=== PATIENT | female | born 1945 | race Caucasian/White ===

== ENCOUNTER → 2017-12-20 09:44 | Outpatient (CLI) | payer OTHER, SELFPAY ==
--- NOTE | 2017-12-20 | DI.MG.S_ITS ---
UNILATERAL LEFT DIGITAL SCREENING MAMMOGRAM 3D/2D WITH CAD: 12/20/2017 CLINICAL: Routine screening. Personal history of breast cancer. Family history of breast cancer. Comparison is made to exams dated: 11/06/2016 mammogram, 10/22/2015 mammogram, and 04/11/2012 mammogram - [facility]. There are scattered fibroglandular elements in left breast. Current study was also evaluated with a Computer Aided Detection (CAD) system. There is an asymmetry in the left breast middle depth superior region seen on the mediolateral oblique view only. There is architectural distortion associated with the asymmetry. No other significant masses or calcifications are seen in the breast. IMPRESSION: INCOMPLETE: NEEDS ADDITIONAL IMAGING EVALUATION The asymmetry in the left breast is indeterminate. Additional views with possible ultrasound are recommended. This exam was interpreted at Station ID: [id number]. NOTE: For mammograms, a report in lay terms will be sent to the patient. Approximately 15% of breast malignancies will not be visualized mammographically. In the management of a palpable breast mass, a negative mammogram must not discourage biopsy of a clinically suspicious lesion. Electronically Signed By: Patricia olivo/clive:12/21/2017 12:16:16 Entry: angie - 12/21/2017 12:16:16 letter sent: Additional Imaging Needed ACR BI-RADS Category 0: Incomplete 3340F
== END ==
PROVIDERS: Family Provider Family Medicine; PCP Family Medicine; Visit Provider Family Medicine
DX: Z12.31 Encounter for screening mammogram for malignant neoplasm of breast (principal); Z85.3 Personal history of malignant neoplasm of breast; Z80.3 Family history of malignant neoplasm of breast
CPT/HCPCS: 77063; 77065

== ENCOUNTER → 2018-01-11 09:18 | Outpatient (CLI) | payer OTHER, SELFPAY ==
--- NOTE | 2018-01-11 | DI.US.S_ITS ---
ULTRASOUND OF LEFT BREAST: 01/11/2018 CLINICAL: Patient returns today to evaluate a density in the left breast. Comparison is made to exams dated: 01/11/2018 mammogram, 12/20/2017 mammogram, 11/06/2016 mammogram, and 10/22/2015 mammogram - [facility]. Real-time ultrasound of the left breast was performed on the areas of interest. Norwood scale images of the real-time examination were reviewed. IMPRESSION: SUSPICIOUS OF MALIGNANCY There is no sonographic abnormality seen in the left breast to correspond with the mammography finding. Stereotactic biopsy of the focal asymmetry in the left breast at 1 o'clock is recommended. These findings and recommendations were discussed with the patient by Dr. Baker at the time of the study. Additionally, the fact that the lesion may not be as conspicuous under stereotactic guidance was discussed. If the lesion cannot be seen under stereotactic visualization, MRI or 6 month follow up may be recommended. This exam was interpreted at Station ID: [id number]. Electronically Signed By: Patricia olivo/:01/11/2018 14:00:13 letter sent: Biopsy Required Ultrasound BI-RADS: 4a Suspicious abnormality - low suspicion for malignancy
--- NOTE | 2018-01-11 | DI.MG.S_ITS ---
UNILATERAL LEFT DIGITAL DIAGNOSTIC MAMMOGRAM 3D/2D WITH ADDITIONAL VIEWS: 01/11/2018 CLINICAL: Additional evaluation requested from prior study. Comparison is made to exams dated: 12/20/2017 mammogram, 11/06/2016 mammogram, and 10/22/2015 mammogram - [facility]. There are scattered fibroglandular elements in left breast. There is a focal asymmetry in the left breast at 1 o'clock middle depth. This is seen in additional views. There is architectural distortion associated with the focal asymmetry. No other significant masses or calcifications are seen in the breast. IMPRESSION: INCOMPLETE: NEEDS ADDITIONAL IMAGING EVALUATION The focal asymmetry in the left breast is indeterminate. A targeted ultrasound of the left breast is recommended and will be performed immediately following this exam. This exam was interpreted at Station ID: [id number]. NOTE: For mammograms, a report in lay terms will be sent to the patient. Approximately 15% of breast malignancies will not be visualized mammographically. In the management of a palpable breast mass, a negative mammogram must not discourage biopsy of a clinically suspicious lesion. Electronically Signed By: Patricia olivo/:01/11/2018 09:39:42 letter sent: Additional Imaging Needed ACR BI-RADS Category 0: Incomplete 3340F
== END ==
PROVIDERS: PCP Family Medicine; Visit Provider Family Medicine
DX: R92.8 Other abnormal and inconclusive findings on diagnostic imaging of breast (principal); N64.89 Other specified disorders of breast
CPT/HCPCS: 76642; 77065; G0279

== ENCOUNTER 2018-04-25 10:11 | Emergency (ER) | payer OTHER, SELFPAY ==
[2018-04-25 10:18] VITALS: BP 154/89; PULSE 103; RESP 20; TEMP 36.6; O2SAT 95
--- NOTE | 2018-04-25 10:32 | ED.EXTPRO ---
HPI - Extremity Problem General Chief complaint: Extremity Problem,Nontraumatic Stated complaint: PT STUMBLED AND FELL Time Seen by Provider: 04/25/18 10:18 Source: patient Mode of arrival: ambulatory Limitations: no limitations History of Present Illness HPI Narrative: Patient is a 72 year old female presents with ground level fall. She was walking a ramp to the hospital pharmacy she fell forward landing on her right knee. The sawyer cork slabs saw her fall helped her up and walked her to the emergency department for further evaluation. She has chronic ongoing back pain with sciatica. She says that pain actually is not any worse. She says due to the static pain she has not been walking a lot however today she walked twice as far as she normally does. She walked from [facility] to the pharmacy to get her prescription she thinks that may be why she fell. She has some right leg pain but is been ongoing since November. She is is able to weight bear. She has no knee pain or hip pain. She denies any dizziness lightheadedness shortness of breath. She is a diabetic her blood sugars have been slightly out Related Data Home Medications Medication Instructions Recorded Confirmed MULTIVITAMIN (Multivitamin 1 cap PO EVERY DAY #0 04/06/10 11/13/17 -) cetirizine 10 mg PO #0 01/26/12 11/13/17 lisinopril 5 mg PO QDAY #0 01/26/12 11/13/17 pravastatin [Pravachol] 20 mg PO HS #0 01/26/12 11/13/17 atorvastatin [Lipitor] 10 mg PO HS #0 11/07/16 11/13/17 glimepiride [Amaryl] 4 mg PO BID #0 11/07/16 11/13/17 hydrocodone-acetaminophen [[place]] 1 tab PO Q4HP PRN #0 11/07/16 11/13/17 trospium 60 mg PO QDAY #0 11/07/16 11/13/17 gabapentin 600 mg tablet 1,200 mg PO TID #0 tab 11/13/17 11/13/17 insulin glargine (U-100) 100 20 unit SUBCUT QDAY #0 ml 11/13/17 11/13/17 unit/mL (3 mL) subcutaneous pen meloxicam 7.5 mg tablet 7.5 mg PO #0 tab 11/13/17 11/13/17 omeprazole 20 mg capsule,delayed 20 mg PO QDAY PRN #0 11/13/17 11/13/17 release sertraline 25 mg tablet 25 mg PO DAILY 11/13/17 Previous Rx's Medication Instructions Recorded melatonin 3 mg PO HS #30 tab 05/14/17 Allergies Allergy/AdvReac Type Severity Reaction Status Date / Time triamcinolone [TRIAMCINOLONE] Allergy Intermediate URINARY Unverified 05/16/17 12:11 RETENTION Review of Systems Review of Systems ROS Unobtainable: All systems reviewed & are unremarkable except as noted in HPI and below Constitutional Denies chills, Denies fever(s), Denies lethargy and Denies weakness Eyes Denies change in vision, Denies eye discharge, Denies irritation and Denies loss of vision Cardiovascular Denies chest pain, Denies irregular heart rhythm, Denies lightheadedness, Denies palpitations, Denies dyspnea, Denies dyspnea on exertion and Denies orthopnea Respiratory Denies cough, Denies dyspnea, Denies dyspnea on exertion and Denies wheezing Gastrointestinal Gastrointestinal: Denies abdominal pain, Denies change in bowel habits, Denies diarrhea, Denies nausea and Denies vomiting Genitourinary Denies hematuria, Denies flank pain, Denies urinary incontinence and Denies urinary urgency Musculoskeletal Reports as per HPI Integumentary/Breasts Denies pruritus, Denies erythema, Denies rash and Denies wounds Neurologic Denies loss of vision and Denies weakness Endocrine Denies palpitations Allergic/Immunologic Denies wheezing [facility] Medical History Diabetes (Acute) Social History lives independently: Yes housing: apartment Social History lives independently: Yes housing: apartment Exam Initial Vital Signs Initial Vital Signs: Vital Signs Temperature 97.8 F 04/25/18 10:18 Pulse Rate 103 H 04/25/18 10:18 Respiratory Rate 20 04/25/18 10:18 Blood Pressure 154/89 H 04/25/18 10:18 Pulse Oximetry 95 04/25/18 10:18 GENERAL: Well-appearing, well-nourished and in no acute distress. HEENT: Head atraumatic,EOMI, pupils reactive, face symmetric, moist mucous membranes CARDIOVASCULAR: Regular rate and rhythm without murmurs, rubs or gallops. RESPIRATORY: Breath sounds equal bilaterally, no wheezes rales or rhonchi. ABDOMEN: Soft, nontender. Normoactive bowel sounds all 4 quadrants. No guarding or rebound. EXTREMITIES: Normal range of motion, no clubbing or edema. Neurovascularly intact. Right lower extremity able flex and extend the knee completely. No hip pain distal pedal pulse intact. Moving leg quite easily BACK: Lumbar tenderness, which she says is stable no sign of trauma no contusion no abrasion Pelvis is stable no tenderness in his NEUROLOGICAL: Alert and oriented x4.Normal gait and speech. Cranial nerves II through XII grossly intact. SKIN: Warm, dry, no laceration, no petechiae, no rashes or lesions. Course Vital Signs - 8 hr 04/25/18 10:18 Temperature 97.8 F Pulse Rate 103 H Respiratory Rate 20 Blood Pressure 154/89 H Pulse Oximetry 95 MDM - Extremity (Nontraumatic) Lab Data Point of Care Testing Glucose POC 212 MDM Narrative Medical decision making narrative: At this time patient is chronic ongoing pain. She walked more today than she normally did. His sound as though she was tripped and fell outside of the hospital. She has no other complaints she is ambulatory afterwards. At this time no indication for any imaging she may need an outpatient MRI if her back pain continues to worsen. She fell forwards not backwards, worsening pain today. Discharge Plan Departure Patient Disposition: Home Clinical Impression: Contusion of knee, right Qualifiers: Encounter type: initial encounter Qualified Code(s): S80.01XA - Contusion of right knee, initial encounter Discharge Date/Time: 04/25/18 10:49 Interventions: ED Discharge Assessment Last Done: 04/25/18 10:48 Instructions: Managing Chronic Low Back Pain, How to Prevent Falls Activity Restrictions/Additional Instructions: *You have been diagnosed with rate knee pain, acute on chronic back pain *What to do: May need MRI as outpatient. At this time no need for imaging *Continue to take medications as directed *Follow up with your primary care provider in 2-3 days *Return to ER if you should have increasing weak or any new, worsening or concerning symptoms Prescriptions: No Action sertraline 25 mg tablet 25 mg PO DAILY RF: 0 MULTIVITAMIN (Multivitamin -) 1 cap PO EVERY DAY Qty: 0 RF: 0 pravastatin [Pravachol] 20 MG tablet 20 mg PO HS Qty: 0 RF: 0 cetirizine 10 MG tablet 10 mg PO Qty: 0 RF: 0 lisinopril 5 MG tablet 5 mg PO QDAY Qty: 0 RF: 0 trospium 60 MG capsule,extended release 24hr 60 mg PO QDAY Qty: 0 RF: 0 glimepiride [Amaryl] 4 MG tablet 4 mg PO BID Qty: 0 RF: 0 atorvastatin [Lipitor] 10 MG tablet 10 mg PO HS Qty: 0 RF: 0 hydrocodone-acetaminophen [[place]] 5 MG/325 MG tablet 1 tab PO Q4HP PRNQty: 0 RF: 0 melatonin 3 MG tablet 3 mg PO HS Qty: 30 RF: 2 gabapentin [Neurontin] 600 mg tablet 1,200 mg PO TID Qty: 0 RF: 0 insulin glargine [Lantus Solostar U-100 Insulin] 100 unit/mL (3 mL) insulin pen 20 unit SUBCUT QDAY Qty: 0 RF: 0 meloxicam [Mobic] 7.5 mg tablet 7.5 mg PO Qty: 0 RF: 0 omeprazole 20 mg capsule,delayed release(DR/EC) 20 mg PO QDAY PRN (Reason: reflux) Qty: 0 RF: 0 Referrals: Kamran Barr MD [Primary Care Provider] -
--- NOTE | 2018-04-25 10:42 | ED_ITS ---
HPI - Extremity Problem General Chief complaint: Extremity Problem,Nontraumatic Stated complaint: PT STUMBLED AND FELL Time Seen by Provider: 04/25/18 10:18 Source: patient Mode of arrival: ambulatory Limitations: no limitations History of Present Illness HPI Narrative: Patient is a 72 year old female presents with ground level fall. She was walking a ramp to the hospital pharmacy she fell forward landing on her right knee. The lactation coordinator saw her fall helped her up and walked her to the emergency department for further evaluation. She has chronic ongoing back pain with sciatica. She says that pain actually is not any worse. She says due to the static pain she has not been walking a lot however today she walked twice as far as she normally does. She walked from [facility] to the pharmacy to get her prescription she thinks that may be why she fell. She has some right leg pain but is been ongoing since November. She is is able to weight bear. She has no knee pain or hip pain. She denies any dizziness lightheadedness shortness of breath. She is a diabetic her blood sugars have been slightly out Related Data Home Medications Medication Instructions Recorded Confirmed MULTIVITAMIN (Multivitamin 1 cap PO EVERY DAY #0 04/06/10 11/13/17 -) cetirizine 10 mg PO #0 01/26/12 11/13/17 lisinopril 5 mg PO QDAY #0 01/26/12 11/13/17 pravastatin [Pravachol] 20 mg PO HS #0 01/26/12 11/13/17 atorvastatin [Lipitor] 10 mg PO HS #0 11/07/16 11/13/17 glimepiride [Amaryl] 4 mg PO BID #0 11/07/16 11/13/17 hydrocodone-acetaminophen [[place]] 1 tab PO Q4HP PRN #0 11/07/16 11/13/17 trospium 60 mg PO QDAY #0 11/07/16 11/13/17 gabapentin 600 mg tablet 1,200 mg PO TID #0 tab 11/13/17 11/13/17 insulin glargine (U-100) 100 20 unit SUBCUT QDAY #0 ml 11/13/17 11/13/17 unit/mL (3 mL) subcutaneous pen meloxicam 7.5 mg tablet 7.5 mg PO #0 tab 11/13/17 11/13/17 omeprazole 20 mg capsule,delayed 20 mg PO QDAY PRN #0 11/13/17 11/13/17 release sertraline 25 mg tablet 25 mg PO DAILY 11/13/17 Previous Rx's Medication Instructions Recorded melatonin 3 mg PO HS #30 tab 05/14/17 Allergies Allergy/AdvReac Type Severity Reaction Status Date / Time triamcinolone [TRIAMCINOLONE] Allergy Intermediate URINARY Unverified 05/16/17 12:11 RETENTION Review of Systems Review of Systems ROS Unobtainable: All systems reviewed & are unremarkable except as noted in HPI and below Constitutional Denies chills, Denies fever(s), Denies lethargy and Denies weakness Eyes Denies change in vision, Denies eye discharge, Denies irritation and Denies loss of vision Cardiovascular Denies chest pain, Denies irregular heart rhythm, Denies lightheadedness, Denies palpitations, Denies dyspnea, Denies dyspnea on exertion and Denies orthopnea Respiratory Denies cough, Denies dyspnea, Denies dyspnea on exertion and Denies wheezing Gastrointestinal Gastrointestinal: Denies abdominal pain, Denies change in bowel habits, Denies diarrhea, Denies nausea and Denies vomiting Genitourinary Denies hematuria, Denies flank pain, Denies urinary incontinence and Denies urinary urgency Musculoskeletal Reports as per HPI Integumentary/Breasts Denies pruritus, Denies erythema, Denies rash and Denies wounds Neurologic Denies loss of vision and Denies weakness Endocrine Denies palpitations Allergic/Immunologic Denies wheezing [facility] Medical History Diabetes (Acute) Social History lives independently: Yes housing: apartment Social History lives independently: Yes housing: apartment Exam Initial Vital Signs Initial Vital Signs: Vital Signs Temperature 97.8 F 04/25/18 10:18 Pulse Rate 103 H 04/25/18 10:18 Respiratory Rate 20 04/25/18 10:18 Blood Pressure 154/89 H 04/25/18 10:18 Pulse Oximetry 95 04/25/18 10:18 GENERAL: Well-appearing, well-nourished and in no acute distress. HEENT: Head atraumatic,EOMI, pupils reactive, face symmetric, moist mucous membranes CARDIOVASCULAR: Regular rate and rhythm without murmurs, rubs or gallops. RESPIRATORY: Breath sounds equal bilaterally, no wheezes rales or rhonchi. ABDOMEN: Soft, nontender. Normoactive bowel sounds all 4 quadrants. No guarding or rebound. EXTREMITIES: Normal range of motion, no clubbing or edema. Neurovascularly intact. Right lower extremity able flex and extend the knee completely. No hip pain distal pedal pulse intact. Moving leg quite easily BACK: Lumbar tenderness, which she says is stable no sign of trauma no contusion no abrasion Pelvis is stable no tenderness in his NEUROLOGICAL: Alert and oriented x4.Normal gait and speech. Cranial nerves II through XII grossly intact. SKIN: Warm, dry, no laceration, no petechiae, no rashes or lesions. Course Vital Signs - 8 hr 04/25/18 10:18 Temperature 97.8 F Pulse Rate 103 H Respiratory Rate 20 Blood Pressure 154/89 H Pulse Oximetry 95 MDM - Extremity (Nontraumatic) Lab Data Point of Care Testing Glucose POC 212 MDM Narrative Medical decision making narrative: At this time patient is chronic ongoing pain. She walked more today than she normally did. His sound as though she was trip ped and fell outside of the hospital. She has no other complaints she is ambulatory afterwards. At this time no indication for any imaging she may need an outpatient MRI if her back pain continues to worsen. She fell forwards not backwards, worsening pain today. Discharge Plan Departure Patient Disposition: Home Clinical Impression: Contusion of knee, right Qualifiers: Encounter type: initial encounter Qualified Code(s): S80.01XA - Contusion of right knee, initial encounter Discharge Date/Time: 04/25/18 10:49 Interventions: ED Discharge Assessment Last Done: 04/25/18 10:48 Instructions: Managing Chronic Low Back Pain, How to Prevent Falls Activity Restrictions/Additional Instructions: *You have been diagnosed with rate knee pain, acute on chronic back pain *What to do: May need MRI as outpatient. At this time no need for imaging *Continue to take medications as directed *Follow up with your primary care provider in 2-3 days *Return to ER if you should have increasing weak or any new, worsening or concerning symptoms Prescriptions: No Action sertraline 25 mg tablet 25 mg PO DAILY RF: 0 MULTIVITAMIN (Multivitamin -) 1 cap PO EVERY DAY Qty: 0 RF: 0 pravastatin [Pravachol] 20 MG tablet 20 mg PO HS Qty: 0 RF: 0 cetirizine 10 MG tablet 10 mg PO Qty: 0 RF: 0 lisinopril 5 MG tablet 5 mg PO QDAY Qty: 0 RF: 0 trospium 60 MG capsule,extended release 24hr 60 mg PO QDAY Qty: 0 RF: 0 glimepiride [Amaryl] 4 MG tablet 4 mg PO BID Qty: 0 RF: 0 atorvastatin [Lipitor] 10 MG tablet 10 mg PO HS Qty: 0 RF: 0 hydrocodone-acetaminophen [[place]] 5 MG/325 MG tablet 1 tab PO Q4HP PRNQty: 0 RF: 0 melatonin 3 MG tablet 3 mg PO HS Qty: 30 RF: 2 gabapentin [Neurontin] 600 mg tablet 1,200 mg PO TID Qty: 0 RF: 0 insulin glargine [Lantus Solostar U-100 Insulin] 100 unit/mL (3 mL) insulin pen 20 unit SUBCUT QDAY Qty: 0 RF: 0 meloxicam [Mobic] 7.5 mg tablet 7.5 mg PO Qty: 0 RF: 0 omeprazole 20 mg capsule,delayed release(DR/EC) 20 mg PO QDAY PRN (Reason: reflux) Qty: 0 RF: 0 Referrals: Kamran Barr MD [Primary Care Provider] -
== END 2018-04-25 10:49 | disposition home or self-care (01) ==
LOC: ED 10:49
PROVIDERS: Emergency Provider Emergency Medicine; PCP Family Medicine
DX: S80.01XA Contusion of right knee, initial encounter (principal); W18.30XA Fall on same level, unspecified, initial encounter
CPT/HCPCS: 82962; 99282

== ENCOUNTER → 2018-05-10 11:46 | Outpatient (CLI) | payer OTHER, SELFPAY ==
--- NOTE | 2018-05-10 | DI.MRI.S_ITS ---
PROCEDURE: MR LUMBAR SPINE WO CON INDICATIONS: LOW BACK PAIN TECHNIQUE: Noncontrast sagittal T1 spin echo and T2 fast echo, sagittal STIR, axial T1 and T2 fast spin echo through the lumbar spine. In cases with scoliosis, additional coronal T2 fast spin echo may be performed. COMPARISON: [facility], MR, L-SPINE WITHOUT CONTRAST, 02/25/2015, 18:12. FINDINGS: Image quality: Excellent. Alignment and Curvature: There is grade 1 anterolisthesis of L4 on L5, unchanged from prior study. Bone Marrow: Marrow is of normal overall signal. No acute vertebral body compression fractures. Spinal Cord: Conus medullaris terminates at the L1 level. Visualized cord demonstrates normal signal and size. Paraspinous Soft Tissues: No paravertebral masses. L1-L2: Normal appearance. L2-L3: There is interval further decrease of intervertebral disc space. Degenerative endplate changes, broad-based disc bulge and bilateral facet arthrosis is seen causing mild to moderate central canal stenosis and mild bilateral neuroforaminal narrowing slightly worse on the left side. This has slightly progressed since previous study. L3-L4: Broad-based disc bulge and bilateral facet arthrosis is seen with mild central canal stenosis, no significant neural foraminal narrowing. L4-L5: Diffuse disc bulge and superimposed right lateral disc herniation is seen, worsened since previous study. Bilateral facet arthrosis is also seen. There is moderate central canal stenosis and right worse than left bilateral neuroforaminal narrowing also worsened since previous study. L5-S1: Mild diffuse disc bulge and bilateral facet arthrosis is seen with no significant canal stenosis or neuroforaminal narrowing. IMPRESSION: 1. Interval worsening of diffuse disc bulge and right lateral disc herniation at L4-5 level causing moderate central canal stenosis and right worse than left bilateral neuroforaminal narrowing. 2. Degenerative disc bulge and bilateral facet arthrosis at L2-3 level with mild to moderate central canal stenosis and mild bilateral neuroforaminal narrowing also slightly worsened since 2016 study. 3. No acute compression fracture. Grade 1 anterolisthesis of L4 on L5, unchanged from prior study. Dictated by: Fabio Mathis M.D. on 05/10/2018 at 13:36 Approved by: Fabio Mathis M.D. on 05/10/2018 at 13:52
== END ==
PROVIDERS: PCP Family Medicine; Visit Provider Family Medicine
DX: M51.26 Other intervertebral disc displacement, lumbar region (principal); M51.27 Other intervertebral disc displacement, lumbosacral region; M51.36 Other intervertebral disc degeneration, lumbar region; M47.816 Spondylosis without myelopathy or radiculopathy, lumbar region; M48.061 Spinal stenosis, lumbar region without neurogenic claudication; M43.10 Spondylolisthesis, site unspecified
CPT/HCPCS: 72148

== ENCOUNTER → 2018-09-18 12:37 | Outpatient (CLI) | payer OTHER, SELFPAY ==
--- NOTE | 2018-09-18 | DI.US.S_ITS ---
ULTRASOUND OF LEFT BREAST: 09/18/2018 CLINICAL: 6 month follow-up of left breast focal asymmetry noted at the 1:00 axis, middle depth that had no sonographic correlate and finding could not be visualized for attempted stereotactic biopsy. Patient returns for follow up and focal left breast pain in similar area that is noted to be more posterior to location of focal asymmetry. Comparison is made to exams dated: 09/18/2018 mammogram - [facility], 01/17/2018 stereotactic biopsy - [facility], 01/11/2018 ultrasound, 01/11/2018 mammogram, 12/20/2017 mammogram, and 10/22/2015 mammogram - [facility]. Color flow and real-time ultrasound of the left breast were performed. [place]wood scale images of the real-time examination were reviewed. There are benign normal lymph nodes left breast in the upper outer quadrant that correlate with palpable abnormalities and reported pain. No other abnormalties are identified in the left breast. IMPRESSION: PROBABLY BENIGN There are two adjacent normal lymph nodes identified which correlate with palpable are of pain in the upper outer left breast. Recommend clinical follow up for persistent symptoms. There is no abnormality seen in the left breast to correspond with the mammography finding (focal asymmetry) at 1 o'clock in the upper outer quadrant, middle depth which is probably benign given its stability. A follow-up left mammogram and an ultrasound in 6 months is recommended to demonstrate stability. This exam was interpreted at Station ID: [id number]. Electronically Signed By: Oliver gupta/:09/18/2018 16:32:29 letter sent: Followup Recommended Ultrasound BI-RADS: 3 Probably benign
--- NOTE | 2018-09-18 | DI.MG.S_ITS ---
UNILATERAL LEFT DIGITAL DIAGNOSTIC MAMMOGRAM 3D/2D: 09/18/2018 CLINICAL: Patient returns for a 6 month follow up of the left breast. Comparison is made to exams dated: 01/11/2018 mammogram, 12/20/2017 mammogram, and 11/06/2016 mammogram - [facility]. There are scattered fibroglandular elements in left breast. There is a focal asymmetry in the left breast at 1 o'clock anterior depth. This is persistent but appears less prominent than recent evaluation. No other significant masses or calcifications are seen in the breast. IMPRESSION: INCOMPLETE: NEEDS ADDITIONAL IMAGING EVALUATION The focal asymmetry in the left breast is indeterminate. An ultrasound is recommended. There is no abnormality seen in the left breast to correspond with the pain indicated by a square marker in the upper outer quadrant which appears to be more posterior to focal asymmetry that is being followed by imaging today. However, an ultrasound is recommended for further evaluation and is scheduled to immediately follow this study. This exam was interpreted at Station ID: [id number]. NOTE: For mammograms, a report in lay terms will be sent to the patient. Approximately 15% of breast malignancies will not be visualized mammographically. In the management of a palpable breast mass, a negative mammogram must not discourage biopsy of a clinically suspicious lesion. Electronically Signed By: Oliver Oviedo M.D. aty/:09/18/2018 13:32:17 ACR BI-RADS Category 0: Incomplete [id number]
== END ==
PROVIDERS: Visit Provider Student in an Organized Health Care Education/Training Program
DX: R92.8 Other abnormal and inconclusive findings on diagnostic imaging of breast (principal); N64.89 Other specified disorders of breast
CPT/HCPCS: 76642; 77065; G0279

== ENCOUNTER → 2019-04-29 13:11 | Outpatient (CLI) | payer MEDICARE, SELFPAY ==
--- NOTE | 2019-04-29 | DI.US.S_ITS ---
LIMITED ULTRASOUND OF LEFT BREAST AND AXILLA: 04/29/2019 CLINICAL: 6 month follow-up of nodes. Comparison is made to exams dated: 04/29/2019 mammogram, 09/18/2018 ultrasound, 09/18/2018 mammogram - [facility], 01/17/2018 stereotactic biopsy - [facility], and 01/11/2018 ultrasound - [facility]. Real-time ultrasound of the left breast upper outer quadrant and axilla regions was performed on the areas of interest. No discrete cystic or solid mass lesion identified in the area of mammographic finding. IMPRESSION: PROBABLY BENIGN There is no sonographic evidence of malignancy. There is no abnormality seen in the left breast to correspond with the mammography finding in the upper outer quadrant. A follow-up mammogram in 6 months is recommended to demonstrate 2 year stability. This exam was interpreted at Station ID: [id number]. Electronically Signed By: New Mann M.D. ddp/:05/01/2019 12:14:59 letter sent: Followup Recommended Ultrasound BI-RADS: 3 Probably benign
--- NOTE | 2019-04-29 | DI.MG.S_ITS ---
UNILATERAL LEFT DIGITAL DIAGNOSTIC MAMMOGRAM 3D/2D SHORT-TERM FOLLOW-UP POST MASTECTOMY: 04/29/2019 CLINICAL: Patient returns for a 6 month follow up of the left breast. Comparison is made to exams dated: 09/18/2018 mammogram, 01/11/2018 mammogram, and 12/20/2017 mammogram - [facility]. There are scattered fibroglandular elements in left breast. There is an irregular equal density focal asymmetry with an indistinct margin in the left breast at 1 o'clock anterior depth. This is not significantly changed. No other significant masses or calcifications are seen in the breast. IMPRESSION: INCOMPLETE: NEEDS ADDITIONAL IMAGING EVALUATION The irregular equal density focal asymmetry in the left breast is indeterminate. An ultrasound is recommended. This exam was interpreted at Station ID: [id number]. NOTE: For mammograms, a report in lay terms will be sent to the patient. Approximately 15% of breast malignancies will not be visualized mammographically. In the management of a palpable breast mass, a negative mammogram must not discourage biopsy of a clinically suspicious lesion. Electronically Signed By: New avendaño/clive:04/29/2019 14:34:53 ACR BI-RADS Category 0: Incomplete 3340F
== END ==
PROVIDERS: Referring Provider Student in an Organized Health Care Education/Training Program; Visit Provider Student in an Organized Health Care Education/Training Program
DX: R92.8 Other abnormal and inconclusive findings on diagnostic imaging of breast (principal); N64.4 Mastodynia; N64.89 Other specified disorders of breast
CPT/HCPCS: 76642; 77065; G0279

== ENCOUNTER → 2019-11-04 12:20 | Outpatient (CLI) | payer MEDICARE, SELFPAY ==
--- NOTE | 2019-11-04 | DI.MG.S_ITS ---
UNILATERAL LEFT DIGITAL DIAGNOSTIC MAMMOGRAM 3D/2D: 11/04/2019 CLINICAL: Short follow up. Comparison is made to exams dated: 04/29/2019 mammogram, 09/18/2018 mammogram, 01/11/2018 mammogram, 04/29/2019 ultrasound, 09/18/2018 ultrasound, and 01/11/[address] ultrasound - [facility]. There are scattered fibroglandular elements in left breast. There is a benign focal asymmetry in the left breast at 1 o'clock anterior depth. This is less prominent and was not seen on the prior ultrasound. This focal asymmetry has been decreasing in prominence over multiple prior exams dating back to 12/20/2017, and is considered benign. No other significant masses or calcifications are seen in the breast. IMPRESSION: BENIGN There is no mammographic evidence of malignancy. A 1 year screening mammogram is recommended. This exam was interpreted at Station ID: [id number]. NOTE: For mammograms, a report in lay terms will be sent to the patient. Approximately 15% of breast malignancies will not be visualized mammographically. In the management of a palpable breast mass, a negative mammogram must not discourage biopsy of a clinically suspicious lesion. Electronically Signed By: Derek magana/clive:11/04/2019 13:23:02 letter sent: Normal Exam ACR BI-RADS Category 2: Benign Finding(s) 3342F
== END ==
PROVIDERS: PCP Student in an Organized Health Care Education/Training Program; Referring Provider Student in an Organized Health Care Education/Training Program; Visit Provider Student in an Organized Health Care Education/Training Program
DX: R92.8 Other abnormal and inconclusive findings on diagnostic imaging of breast (principal)
CPT/HCPCS: 77065; G0279

== ENCOUNTER → 2020-04-15 11:15 | Outpatient (CLI) | payer MEDICARE, SELFPAY ==
--- NOTE | 2020-04-15 | DI.RAD.S_ITS ---
PROCEDURE: XR KNEE RT 3V INDICATIONS: Right Knee Pain TECHNIQUE: 3 views of the knee were acquired. COMPARISON: None. FINDINGS: Bones: No acute fractures or dislocations. No suspicious bony lesions. Mild tricompartmental degenerative changes of the right knee. Tricompartmental osteophyte formation. Small enthesophyte at the insertion site of the distal quadriceps tendon. Soft tissues: No joint effusion. No suspicious soft tissue calcifications. IMPRESSION: Right knee without acute fracture or dislocation. Tricompartmental osteoarthrosis. Dictated by: Oliver Oviedo M.D. on 04/15/2020 at 14:21 Approved by: Oliver Oviedo M.D. on 04/15/2020 at 14:25
== END ==
PROVIDERS: PCP Student in an Organized Health Care Education/Training Program; Referring Provider Student in an Organized Health Care Education/Training Program; Visit Provider Student in an Organized Health Care Education/Training Program
DX: M25.561 Pain in right knee (principal); M17.11 Unilateral primary osteoarthritis, right knee
CPT/HCPCS: 73562

== ENCOUNTER → 2020-05-07 12:13 | Outpatient (CLI) | payer MEDICARE, SELFPAY ==
--- NOTE | 2020-05-07 12:15 | DI.RAD.S_ITS ---
PROCEDURE: XR DEXA AXIAL SKELETON INDICATIONS: Asymptomatic menopausal state COMPARISON: None. FINDINGS: This blank DEXA report has been sent in error by the PACS system. The correct and complete report will be forthcoming in 1-2 days. Thank you for your patience and understanding. Dictated by: Anni Duran MD, PhD on 05/10/2020 at 13:30 Approved by: Anni Duran MD, PhD on 05/10/2020 at 13:30
== END ==
PROVIDERS: PCP Student in an Organized Health Care Education/Training Program; Referring Provider Student in an Organized Health Care Education/Training Program; Visit Provider Student in an Organized Health Care Education/Training Program
DX: Z78.0 Asymptomatic menopausal state (principal)
CPT/HCPCS: 77080

== ENCOUNTER → 2020-08-23 07:59 | Outpatient (CLI) | payer MEDICARE, SELFPAY ==
[2020-08-23 10:29] LABS: COVID19 -Nasal RAPID Negative (Negative)
== END ==
PROVIDERS: PCP Student in an Organized Health Care Education/Training Program; Visit Provider Student in an Organized Health Care Education/Training Program
DX: Z01.812 Encounter for preprocedural laboratory examination (principal); Z20.822 Contact with and (suspected) exposure to COVID-19
CPT/HCPCS: 87635; C9803

== ENCOUNTER 2020-08-24 06:50 | Day surgery (SDC) | payer MEDICARE, SELFPAY ==
[2020-08-24] MEDS: CATARACT EYE COMPOUND (10 DROPS/SYRINGE) 3 DROPS EYE-OP (07:40)
[2020-08-24] MEDS: PROPARACAINE 0.5% OPHTH SOL 2 DROPS EYE-OP (07:40)
[2020-08-24 07:41] VITALS: BP 108/70; PULSE 77; RESP 14; TEMP 36.2; O2SAT 97; BMI 29.2
--- NOTE | 2020-08-24 08:30 | PM.PREOP ---
Pre-operative Note Interval Note History & Physical reviewed/Exam performed by Physician: Yes Changes to H&P: No
--- NOTE | 2020-08-24 08:30 | PM.OP.1 ---
Operative Date/Time/Diagnoses Pre-op diagnosis: Nuclear Cataract Left eye Post-op diagnosis: same Procedure & Clinicians Same procedure as scheduled: Yes Surgeon: Flash De La Rosa Anesthesia Type: MAC +/- and Sedation Operative Notes Procedure in detail: Patient brought to the operating suite. Tetracaine drops placed in the left eye. Patient was prepped and draped in sterile manner. Wire lid speculum was placed in the eye. Betadine drops were placed on the eye. This was irrigated. Lidocaine jelly was placed on the eye. A paracentesis port was created with a side-port blade. 0.1 mL 1% preservative free lidocaine was injected into the anterior chamber. The anterior chamber was deepened with viscoelastic. 2.6 mm keratome was used to create a temporal clear corneal incision. Cystotome and Utrata forceps were used to create continuous tear capsulorrhexis. Balanced salt solution was used to hydro dissect the nucleus. The phacoemulsification handpiece was inserted and the nucleus was removed using the stop and chop technique. The irrigation aspiration handpiece was inserted and the remaining cortex was removed. Anterior chamber was deepened with viscoelastic. An Castellon DIB00 intraocular lens with a power of 19.5 was injected into the capsular bag. Irrigation aspiration handpiece was inserted and the remaining viscoelastic was removed. Incision was hydrated with balanced salt solution and found to be leak free with pressure with Weck-Ciera sponges. 0.1 mL Vigamox injected anterior chamber. 0.3 mL Kenalog 10 mg was injected subconjunctivally. Lid speculum was removed. The patient left the operating room in excellent condition. Complications: none Post-operative Condition: stable Disposition: same day surgery
[2020-08-24] MEDS: CHONDROIDTIN/SOD HYALURONATE 1.05 ML SYRINGE INTRAOCULA (08:49)
[2020-08-24] MEDS: TRIAMCINOLONE 50 MG/5 ML VIAL INJ (08:49)
[2020-08-24] MEDS: PHENYLEPHRINE/LIDOCAINE VIAL (OR) 0.2 ML EYE-OP (08:49)
[2020-08-24] MEDS: LIDOCAINE 2% (GLYDO) 6 ML GEL TOP (08:50)
[2020-08-24] MEDS: MOXIFLOXACIN INJ 4 MG/0.8 ML VIAL 0.5 MG EYE-OP (08:50)
[2020-08-24] MEDS: BALANCED SALT IRRIG SOLN NO.2 500 ML, EPINEPHrine 1 MG IRR (08:50)
[2020-08-24] MEDS: TETRACAINE 0.5% OPHTH DROPS 4 ML 2 DROPS EYE-OP (08:50)
[2020-08-24 09:05] VITALS: BP 100/61; PULSE 70; RESP 16; TEMP 36.1; O2SAT 94
--- NOTE | 2020-08-24 09:07 | SUR.PHASEII ---
Discharged patient home with family in stable condition.
== END 2020-08-24 09:07 | disposition home or self-care (01) ==
PROVIDERS: PCP Student in an Organized Health Care Education/Training Program; Referring Provider Ophthalmology; Visit Provider Ophthalmology
PROC: (CPT 66984; principal; 2020-08-24 08:45)
DX: H25.12 Age-related nuclear cataract, left eye (principal); E11.9 Type 2 diabetes mellitus without complications; E78.00 Pure hypercholesterolemia, unspecified; Z79.84 Long term (current) use of oral hypoglycemic drugs
CPT/HCPCS: 66984; J0171; J2250; J3301

== ENCOUNTER → 2020-09-04 10:56 | Outpatient (CLI) | payer MEDICARE, SELFPAY ==
[2020-09-04 13:33] LABS: COVID19 -Nasal RAPID Negative (Negative)
== END ==
PROVIDERS: PCP Student in an Organized Health Care Education/Training Program; Visit Provider Student in an Organized Health Care Education/Training Program
DX: Z01.812 Encounter for preprocedural laboratory examination (principal); Z20.822 Contact with and (suspected) exposure to COVID-19
CPT/HCPCS: 87635; C9803

== ENCOUNTER 2020-09-07 06:38 | Day surgery (SDC) | payer MEDICARE, SELFPAY ==
[2020-09-07] MEDS: PROPARACAINE 0.5% OPHTH SOL 2 DROPS EYE-OP (07:12)
[2020-09-07 07:14] VITALS: BP 110/70; PULSE 77; RESP 18; TEMP 36.2; O2SAT 96; BMI 29.2
[2020-09-07] MEDS: CATARACT EYE COMPOUND (10 DROPS/SYRINGE) 3 DROPS EYE-OP (07:23)
--- NOTE | 2020-09-07 08:01 | PM.PREOP ---
Pre-operative Note Interval Note History & Physical reviewed/Exam performed by Physician: Yes Changes to H&P: No
--- NOTE | 2020-09-07 08:01 | PM.OP.1 ---
Operative Date/Time/Diagnoses Pre-op diagnosis: Nuclear cataract right eye Procedure & Clinicians Procedure: Cataract Surgery Same procedure as scheduled: Yes Surgeon: Flash De La Rosa Anesthesia Type: MAC +/- and Sedation Operative Notes Procedure in detail: Patient brought to the operating suite. Tetracaine drops placed in the right eye. Patient was prepped and draped in sterile manner. Wire lid speculum was placed in the eye. Betadine drops were placed on the eye. This was irrigated. Lidocaine jelly was placed on the eye. A paracentesis port was created with a side-port blade. 0.1 mL 1% preservative free lidocaine was injected into the anterior chamber. The anterior chamber was deepened with viscoelastic. 2.6 mm keratome was used to create a temporal clear corneal incision. Cystotome and Utrata forceps were used to create continuous tear capsulorrhexis. Balanced salt solution was used to hydro dissect the nucleus. The phacoemulsification handpiece was inserted and the nucleus was removed using the stop and chop technique. The irrigation aspiration handpiece was inserted and the remaining cortex was removed. Anterior chamber was deepened with viscoelastic. An Castellon DIB00 intraocular lens with a power of 19.0 was injected into the capsular bag. Irrigation aspiration handpiece was inserted and the remaining viscoelastic was removed. Incision was hydrated with balanced salt solution and found to be leak free with pressure with Weck-Ciera sponges. 0.1 mL Vigamox injected anterior chamber. 0.3 mL Kenalog 10 mg was injected subconjunctivally. Lid speculum was removed. The patient left the operating room in excellent condition. Complications: none Post-operative Condition: stable Disposition: same day surgery
[2020-09-07] MEDS: MOXIFLOXACIN INJ 4 MG/0.8 ML VIAL 0.5 MG EYE-OP (08:17)
[2020-09-07] MEDS: CHONDROIDTIN/SOD HYALURONATE 1.05 ML SYRINGE INTRAOCULA (08:17)
[2020-09-07] MEDS: LIDOCAINE 2% (GLYDO) 6 ML GEL TOP (08:17)
[2020-09-07] MEDS: TETRACAINE 0.5% OPHTH DROPS 4 ML 2 DROPS EYE-OP (08:18)
[2020-09-07] MEDS: TRIAMCINOLONE 50 MG/5 ML VIAL INJ (08:18)
[2020-09-07] MEDS: PHENYLEPHRINE/LIDOCAINE VIAL (OR) 0.2 ML EYE-OP (08:18)
[2020-09-07] MEDS: BALANCED SALT IRRIG SOLN NO.2 500 ML, EPINEPHrine 1 MG IRR (08:19)
[2020-09-07 08:34] VITALS: BP 87/59; PULSE 71; RESP 14; TEMP 36.4; O2SAT 95
[2020-09-07 08:50] VITALS: BP 98/58; PULSE 74; RESP 16; TEMP 36.1; O2SAT 97
== END 2020-09-07 09:16 | disposition home or self-care (01) ==
PROVIDERS: PCP Student in an Organized Health Care Education/Training Program; Referring Provider Ophthalmology; Visit Provider Ophthalmology
PROC: (CPT 66984; principal; 2020-09-07 08:15)
DX: H25.11 Age-related nuclear cataract, right eye (principal); E11.9 Type 2 diabetes mellitus without complications; E78.00 Pure hypercholesterolemia, unspecified
CPT/HCPCS: 66984; J0171; J2250; J3301

== ENCOUNTER → 2020-12-12 12:59 | Outpatient (CLI) | payer MEDICARE, SELFPAY ==
[2020-12-12 13:48] LABS: COVID19 -Nasal RAPID Negative (Negative)
== END ==
PROVIDERS: PCP Student in an Organized Health Care Education/Training Program; Referring Provider Physician Assistant; Visit Provider Physician Assistant
DX: Z20.822 Contact with and (suspected) exposure to COVID-19 (principal); R09.81 Nasal congestion
CPT/HCPCS: 87635

== ENCOUNTER → 2020-12-20 13:16 | Outpatient (CLI) | payer MEDICARE, SELFPAY ==
--- NOTE | 2020-12-20 13:18 | DI.CT.S_ITS ---
PROCEDURE: CT KIDNEY URETER BLADDER (KUB) INDICATIONS: Left lower quadrant pain TECHNIQUE: Axial sections were acquired from the lung bases to the pubic symphysis. Coronal and sagittal reformats were performed. For radiation dose reduction, the following was used: automated exposure control, adjustment of mA and/or kV according to patient size. COMPARISON: RF, UPPER GI AIR CONTRAST WITH KUB, 01/11/2010, 11:15. FINDINGS: Image quality: Excellent. Lung bases: Small lung nodules are present measuring 2 mm in the right lung base (series 3, image 7 and 11). Lingula scars and atelectasis. Right mastectomy. Small hiatal hernia. Heart: No significant findings. Small hiatal hernia. URINARY: Right Kidney: No stones or hydronephrosis. Right Ureter: No hydroureter. Left Kidney: No stones or hydronephrosis. Left Ureter: No hydroureter. Bladder: Normal wall thickness. No stones. ABDOMEN: Liver: Unremarkable. Gallbladder: Surgically absent Biliary ducts: Unremarkable. Pancreas: Unremarkable. Spleen: Unremarkable. Adrenal Glands: Unremarkable. Stomach and Bowel: Stomach, small bowel loops, and colon are normal in caliber. Diverticulosis without diverticulitis. Normal appendix. Peritoneum: No abnormal intraperitoneal fluid. No free air. Ventral Wall: Small umbilical hernia. Abdominal Nodes: No enlarged retroperitoneal or mesenteric lymph nodes. Vessels: Aorta and inferior vena cava are normal in size. Mild atherosclerotic calcification. PELVIS: Pelvic Organs: Unremarkable. Pelvic Nodes: Unremarkable. Miscellaneous: No inguinal hernias are seen. Bones: Moderate degenerative changes at L2-L3. IMPRESSION: 1. No acute abnormalities in abdomen or pelvis. 2. Diverticulosis without diverticulitis. 3. No renal stone or hydronephrosis. 4. Small right lung nodules. Please see enclosed follow-up recommendation. Fleischner Society criteria for SOLID lung nodule followup. Nodule size (mm)Low-risk patientHigh-risk patient?4No follow-up neededFollow-up at 12 mo; if no change, no further follow-up>0-0Ljauyc-nd CT at 12 mo; if no change, no further follow-up needed.Initial follow-up CT at 6-12 mo, then 18-24 mo if no change. >6-8Initial follow-up CT at 6-12 mo, then 18-24 mo if no change. Initial follow-up CT at 3-6 mo, then 9-12 mo and 24 mo if no change. >8Follow-up CT at 3, 9, 24 mo. Or PET and/or biopsy.Same as for low-risk pts. Dictated by: Reno Koenig M.D. on 12/20/2020 at 16:35 Approved by: Reno Koenig M.D. on 12/21/2020 at 8:04
== END ==
PROVIDERS: PCP Student in an Organized Health Care Education/Training Program; Referring Provider Student in an Organized Health Care Education/Training Program; Visit Provider Student in an Organized Health Care Education/Training Program
DX: R10.32 Left lower quadrant pain (principal); R91.8 Other nonspecific abnormal finding of lung field; K44.9 Diaphragmatic hernia without obstruction or gangrene; K57.90 Diverticulosis of intestine, part unspecified, without perforation or abscess without bleeding
CPT/HCPCS: 74176

== ENCOUNTER → 2021-01-20 09:30 | Outpatient (CLI) | payer MEDICARE, SELFPAY ==
--- NOTE | 2021-01-20 | DI.MG.S_ITS ---
UNILATERAL LEFT DIGITAL SCREENING MAMMOGRAM 3D/2D WITH CAD POST MASTECTOMY: 01/20/2021 CLINICAL: Routine screening. Personal history of right breast cancer. Family history of breast cancer. Comparison is made to exams dated: 11/04/2019 mammogram, 04/29/2019 mammogram, and 09/18/2018 mammogram - [facility]. The tissue of left breast is predominantly fatty. Current study was also evaluated with a Computer Aided Detection (CAD) system. No significant masses, calcifications, or other findings are seen in the breast. There has been no significant interval change. IMPRESSION: NEGATIVE There is no mammographic evidence of malignancy. A 1 year screening mammogram is recommended. This exam was interpreted at Station ID: [id number]. NOTE: For mammograms, a report in lay terms will be sent to the patient. Approximately 15% of breast malignancies will not be visualized mammographically. In the management of a palpable breast mass, a negative mammogram must not discourage biopsy of a clinically suspicious lesion. Electronically Signed By: Cinthya alarcon/clive:01/20/2021 11:14:56 letter sent: Normal Exam ACR BI-RADS Category 1: Negative 3341F
== END ==
PROVIDERS: PCP Student in an Organized Health Care Education/Training Program; Referring Provider Student in an Organized Health Care Education/Training Program; Visit Provider Student in an Organized Health Care Education/Training Program
DX: Z12.31 Encounter for screening mammogram for malignant neoplasm of breast (principal); Z80.3 Family history of malignant neoplasm of breast; Z85.3 Personal history of malignant neoplasm of breast
CPT/HCPCS: 77063; 77067

== ENCOUNTER → 2021-03-16 10:45 | Outpatient (CLI) | payer MEDICARE, SELFPAY ==
[2021-03-16 13:47] LABS: COVID19 -Nasal RAPID Negative (Negative)
== END ==
PROVIDERS: PCP Student in an Organized Health Care Education/Training Program; Visit Provider Family Medicine Sleep Medicine
DX: Z20.822 Contact with and (suspected) exposure to COVID-19 (principal)
CPT/HCPCS: 87635; C9803

== ENCOUNTER 2021-03-18 11:47 | Day surgery (SDC) | payer MEDICARE, SELFPAY ==
--- NOTE | 2021-03-18 11:41 | PM.HP.1 ---
History of Present Illness History of Present Illness Date Patient Seen: 03/18/21 Chief complaint: NDC Narrative: 75 year old female comes in today for consideration of a screening colonoscopy. Last colonoscopy in 2010, normal, 10 year recall. She is having abdominal pain in her right flank pain that radiates to her back, worse after eating. She has been feeling weak and shaky. CT KUB on 12/20/2020 showed no acute abnormalities in the abdomen or pelvis. She did have noted diverticulosis. Labs 12/15/2020 revealed slightly elevated creatinine, but at baseline x2 years. Lipase was notably negative. She is also having constipation, bowel movement every other day. Sometimes her stools are so hard that there is nothing on the toilet paper when she wipes. Denies bleeding or anemia. There's been no family history of colon cancer or colon polyps. Overall health issues have been stable, including no major cardiac events for at least 6 weeks. PCP: Dr. 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 EDEMA, DEPENDENT BACK PAIN, LUMBAR LUMBAR RADICULOPATHY DEGENERATIVE JOINT DISEASE DISC DISEASE, CERVICAL RADICULITIS OSTEOPENIA Schizoaffective disorder, bipolar type INCONTINENCE, URGE LACTOSE INTOLERANCE Menopause Diverticulosis Past Surgical History: Mastectomy Right, 2006 Hiatal hernia repair, 01/14 Colonoscopy, 2010, normal Family history: Noncontributory Social History: Single Lives alone. Alcohol drinks/day: maybe 3 per month >5/day in last 3 mos: no Caffeine use/day: 1 Type of Exercise: walk Guns in home: no Dental Care w/in 6 mos.: no Sun Exposure: frequently Fall Risk: multiple falls in past year Seat Belt Use: yes Smoking Status: never smolker Drug Use: never Patient History Medical History (Updated 03/18/21 @ 12:01 by Holli Lan RN) CKD (chronic kidney disease) Diabetes HTN (hypertension) Hypothyroid Family & Social History Social History: household members none lives independently Yes Tobacco & Substance use: Smoking Status Never smoker alcohol intake current alcohol intake frequency holiday/special occasion Substance Use Type does not use Meds Home Medications and Allergies Home Medications Medication Instructions Recorded Confirmed Type MULTIVITAMIN (Multivitamin 1 cap PO EVERY DAY #0 04/06/10 03/18/21 History -) cetirizine 10 mg tablet 10 mg PO DAILY #0 01/26/12 03/18/21 History lisinopril 5 mg tablet 5 mg PO QDAY #0 01/26/12 03/18/21 History glimepiride 4 mg tablet (Amaryl) 4 mg PO BID #0 11/07/16 03/18/21 History gabapentin 600 mg tablet 1,200 mg PO DAILY #0 tab 11/13/17 03/18/21 History (Neurontin) insulin glargine 100 unit/mL (3 16 unit SUBCUT QDAY #0 ml 11/13/17 03/18/21 History mL) subcutaneous pen (Lantus Solostar U-100 Insulin) meloxicam 7.5 mg tablet (Mobic) 7.5 mg PO 1-2XD #0 tab 11/13/17 03/18/21 History dulaglutide 0.75 mg/0.5 mL 0.75 mg SUBCUT DIRECTED 09/07/20 03/18/21 History subcutaneous pen injector (Trulicity) levothyroxine 50 mcg tablet 50 mcg PO DAILY 09/07/20 03/18/21 History rosuvastatin 5 mg tablet 5 mg PO DAILY 09/07/20 03/18/21 History sertraline 25 mg tablet 25 mg PO DAILY 09/07/20 03/18/21 History Allergies Allergy/AdvReac Type Severity Reaction Status Date / Time latex Allergy Intermediate Verified 09/07/20 07:05 triamcinolone [TRIAMCINOLONE] AdvReac Intermediate URINARY Verified 09/07/20 07:09 RETENTION sulfamethoxazole AdvReac Confusion Verified 03/18/21 12:12 [From Bactrim] trimethoprim [From Bactrim] AdvReac Confusion Verified 03/18/21 12:12 Review of Systems Review of Systems Narrative: All remaining ROS were reviewed and negative except as addressed. Exam Narrative Exam Narrative: GENERAL: Alert and oriented, appearing stated age and in no acute distress. HEENT: Head normocephalic/atraumatic. Extraocular movements intact. LUNGS: Clear to ausculation bilaterally, no wheezes, rhonchi or rales. CV: Normal S1 and S2 with regular rate and rhythm, no audible murmurs, rubs or gallops. ABDOMEN: Soft, non-tender, non-distended, no organomegaly. Positive bowel sounds. EXTREMITIES: No clubbing, cyanosis, or edema. NEURO: Cranial nerves II through XII grossly intact, no focal deficits. PSYCH: Alert and oriented x 3. SKIN: No concerning lesions. Assessment & Plan Assessment & Plan narrative: 1. Abdominal pain 2. Constipation 3. Screening for colon cancer 4. Diverticulosis Plan for colonoscopy. The nature and character of the procedure as well as anticipated results were discussed. The possibility of not completing the procedure was also discussed. Possible complications including aspiration pneumonia, bleeding, perforation and reaction to medications either for sedation or preparation and missed lesions were discussed. Questions were answered and proceeding to the colonoscopy was elected. Informed consent signed. I sincerely appreciate the referral allowing me to participate in this patient's care. Please contact me with any questions or concerns.
--- NOTE | 2021-03-18 12:10 | PM.OP.COLON ---
Operative Date/Time/Diagnoses Date of procedure: 03/18/21 Procedure Notes SCOAP/Timeout: 1:05 p.m. Procedure in detail: ENDOSCOPIST: Maura Vital MD Sedation RN: Lona Patel RN Sedation start time: 1:06 p.m. Sedation end time: 1:24 p.m. PROCEDURE: Colonoscopy INDICATIONS: 1. Abdominal pain 2. Constipation 3. Diverticulosis 4. Screening for colon cancer MEDICATION: Levsin 0.125 mg sublingual, incremental doses of Versed and fentanyl until appropriate level sedation achieved. ASA CLASS: 2 CECAL WITHDRAWAL TIME: 8 minutes COMPLICATIONS: None. EXTENT OF PROCEDURE: Cecum. QUALITY OF PREP: Good with portions of liquid stool. PROCEDURE: Prior to insertion of the colonoscope, a digital rectal examination was accomplished with circumferential palpation of the distal rectal mucosa without significant findings being noted. The high-definition colonoscope was passed into the rectum in the usual fashion and advanced over to the cecum without difficulty. The ileocecal valve, appendiceal stoma, and medial wall all could be inspected and no abnormalities were seen. ASCENDING COLON: As the colonoscope was withdrawn, care was taken to expose and inspect the haustral folds and no abnormalities were seen. HEPATIC FLEXURE: Normal, no polyps, diverticula or other abnormalities. TRANSVERSE COLON: Normal, no polyps, diverticula or other abnormalities. DESCENDING COLON: Minor diverticulosis, otherwise normal, no polyps or other abnormalities. SIGMOID COLON: Minor diverticulosis, otherwise normal, no polyps or other abnormalities. RECTUM: Normal. J maneuver was produced. There was no significant perianal disease. The J maneuver was broken. The remainder of the rectum was inspected and there was no external hemorrhoid disease. The scope was withdrawn. IMPRESSION: 1. Normal colonoscopy 2. Minor diverticulosis, left-sided PLAN: 1. No endoscopic findings to explain patient's abdominal or constipation. Due to patient's age, this can be be her last screening colonoscopy. The possibility of a missed lesion including a malignancy has been discussed with the patient previously. Potential alarm symptoms have been discussed and should be reported immediately.
[2021-03-18 12:20] VITALS: BP 112/76; PULSE 95; RESP 16; TEMP 36.6; O2SAT 98; BMI 28.3
[2021-03-18] MEDS: HYOSCYAMINE 0.125 MG TABLET PO (12:33)
[2021-03-18] MEDS: LACTATED RINGERS 1,000 ML 200 ML IV (12:46)
[2021-03-18] MEDS: fentaNYL 250 MCG/5 ML INJ IV (13:25)
[2021-03-18] MEDS: MIDAZOLAM 5 MG/5 ML VIAL IV (13:26)
[2021-03-18 13:32] VITALS: BP 109/63; PULSE 88; RESP 16; TEMP 36.6; O2SAT 94
[2021-03-18 13:37] VITALS: BP 99/61; PULSE 85; RESP 12; O2SAT 94
[2021-03-18 13:41] VITALS: BP 96/57; PULSE 87; RESP 14; O2SAT 95
[2021-03-18 13:51] VITALS: BP 105/68; PULSE 78; RESP 14; TEMP 36.4; O2SAT 98
== END 2021-03-18 14:10 | disposition home or self-care (01) ==
PROVIDERS: PCP Student in an Organized Health Care Education/Training Program; Referring Provider Student in an Organized Health Care Education/Training Program; Visit Provider Student in an Organized Health Care Education/Training Program
PROC: 0DJD8ZZ Inspection of Lower Intestinal Tract, Via Natural or Artificial Opening Endoscopic (ICD-10-PCS; CPT 45378; principal; 2021-03-18 13:00)
DX: R10.9 Unspecified abdominal pain (principal); K59.00 Constipation, unspecified; K57.30 Diverticulosis of large intestine without perforation or abscess without bleeding; I12.9 Hypertensive chronic kidney disease with stage 1 through stage 4 chronic kidney disease, or unspecified chronic kidney disease; E11.22 Type 2 diabetes mellitus with diabetic chronic kidney disease; N18.30 Chronic kidney disease, stage 3 unspecified; Z79.4 Long term (current) use of insulin; Z79.84 Long term (current) use of oral hypoglycemic drugs
CPT/HCPCS: 45378; J2250; J3010

== ENCOUNTER → 2022-03-29 09:08 | Outpatient (CLI) | payer MEDICARE, SELFPAY ==
--- NOTE | 2022-03-29 09:13 | DI.CT.S_ITS ---
PROCEDURE: CT CHEST WO CON INDICATIONS: abnormal finding of lung field TECHNIQUE: Noncontrast 5 mm thick sections acquired from the pulmonary apices to the posterior costophrenic angles. 1 mm lung window, 5 mm thick coronal and sagittal and 7 mm axial MIP reformats were then acquired. For radiation dose reduction, the following was used: automated exposure control, adjustment of mA and/or kV according to patient size. COMPARISON: [facility], CT, CT KIDNEY URETER BLADDER (KUB), 12/20/2020, 13:25. FINDINGS: Image quality: Excellent. Lungs and pleura: 3 mm left upper lobe pulmonary nodule, image 98/3. Stable 3 mm nodule, right lower lobe, image 165/3. Stable 2 mm nodule, extreme right lateral lung base, image 201/3. No acute air space opacities. No pleural effusions or pneumothorax. Central and peripheral airways are patent and normal in caliber. Mediastinum: Heart size is normal. No pericardial effusion. No mediastinal adenopathy by size criteria. Thoracic aorta and central pulmonary arteries are normal in size. Esophagus is normal in caliber. No hiatal hernia. Bones and chest wall: No suspicious bony lesions. No vertebral body compression fractures. No axillary or supraclavicular adenopathy by size criteria. Thyroid gland is unremarkable . Right breast is surgically absent. Right axillary clips. Abdomen: Remote cholecystectomy. Visualized upper abdominal solid organs and bowel loops appear normal in the absence of contrast. IMPRESSION: 1. Remote right mastectomy. 2. There is a 3 mm left upper lobe pulmonary nodule which was not previously imaged. The previous visualized pulmonary nodules in the left lung base are stable. Please refer to the chart below for nodule follow-up recommendations. 3. No evidence acute pulmonary process. Fleischner Society criteria for SOLID lung nodule followup. Nodule size (mm)Low-risk patientHigh-risk patient<6 (single or multiple)No routine followup.Optional CT at 12 months. 6-8 (single or multiple)CT at 6-12 months, then optional CT at 18-24 mo.CT at 6-12 months, then CT at 18-24 months. >8 (single)CT at 3 months, PET-CT, or biopsy. Same as for low-risk pts. >8 (multiple)CT at 3-6 months, then optional CT at 18-24 mo.CT at 3-6 months, then CT at 18-24 months. Fleischner Society criteria for SUB-SOLID lung nodule followup. Solitary pure ground-glass nodules<6 mm (ground glass or part solid)No followup needed. 6 mm or larger (ground glass)CT at 6-12 months to confirm persistence, then CT every 2 years until 5 years.6 mm or larger (part solid)CT at 3-6 months to confirm persistence, then annual CT until 5 years if unchanged and solid component remains <6 mm. Multiple sub-solid nodules<6 mmCT at 3-6 months, then CT consider at 2 & 4 years for high risk patients. [address] at 3-6 months. Subsequent management based on most suspicious lesions. Recommendations do not apply to lung cancer screening, patients with immunosuppression, or patients with known primary cancer. Dictated by: Oscar Dalal M.D. on 03/29/2022 at 12:26 Approved by: Oscar Dalal M.D. on 03/29/2022 at 12:34
== END ==
PROVIDERS: PCP Family Medicine; Referring Provider Family Medicine; Visit Provider Family Medicine
DX: R91.8 Other nonspecific abnormal finding of lung field (principal); Z90.11 Acquired absence of right breast and nipple; Z90.49 Acquired absence of other specified parts of digestive tract
CPT/HCPCS: 71250

== ENCOUNTER → 2023-04-30 08:36 | Outpatient (CLI) | payer MEDICARE, SELFPAY ==
--- NOTE | 2023-04-30 08:37 | DI.CT.S_ITS ---
PROCEDURE: CT CHEST WO CON INDICATIONS: Solitary pulmonary nodule TECHNIQUE: Noncontrast 2.0-2.5 mm thick sections acquired from the pulmonary apices to the posterior costophrenic angles. 7 mm thick axial MIP, and 5 mm coronal and sagittal reformats were then acquired. For radiation dose reduction, the following was used: automated exposure control, adjustment of mA and/or kV according to patient size. COMPARISON: [facility], CT, CT CHEST WO CON, 03/29/2022, 9:12. FINDINGS: Image quality: Diagnostic. Lower Neck: No enlarged lymph nodes. Thyroid: No thyroid nodules which require sonographic follow up, per consensus guidelines. Axillae: No enlarged lymph nodes. Chest Wall: Unremarkable. Bones: DISH changes of the spine, kyphosis. Lungs and Pleura: No pneumothorax or pleural effusions. Minimal atelectatic changes no suspicious pulmonary nodule seen greater than 4 mm which requires follow-up. Heart: Heart size is normal. No pericardial effusion. Thoracic Vessels: The aorta and pulmonary arteries demonstrate normal size. Mediastinum and Ginger: No enlarged lymph nodes. Esophagus: No wall thickening. No hiatal hernia. Upper Abdomen: Cholecystectomy, right mastectomy changes. IMPRESSION: 1.No suspicious pulmonary nodule seen that would require follow-up 2. Note is made of right mastectomy and cholecystectomy changes Dictated by: Mulugeta Perez M.D. on 04/30/2023 at 14:33 Approved by: Mulugeta Perez M.D. on 04/30/2023 at 14:42
== END ==
PROVIDERS: PCP Family Medicine; Referring Provider Family Medicine; Visit Provider Family Medicine
DX: R91.1 Solitary pulmonary nodule (principal); Z90.49 Acquired absence of other specified parts of digestive tract; Z90.11 Acquired absence of right breast and nipple
CPT/HCPCS: 71250

== ENCOUNTER → 2023-09-26 12:41 | Outpatient (CLI) | payer MEDICARE, SELFPAY ==
--- NOTE | 2023-09-26 12:43 | DI.MG.S_ITS ---
UNILATERAL LEFT DIGITAL SCREENING MAMMOGRAM 3D/2D WITH CAD: 09/26/2023 CLINICAL: Routine screening. Personal history of right breast cancer. Comparison is made to exams dated: 01/20/2021 mammogram, 11/04/2019 mammogram, and 04/29/2019 mammogram - [facility]. There are scattered areas of fibroglandular density in the left breast (category b / 25%-50% glandular tissue). Current study was also evaluated with a Computer Aided Detection (CAD) system. No significant masses, calcifications, or other findings are seen in the breast. There has been no significant interval change. IMPRESSION: NEGATIVE There is no mammographic evidence of malignancy. A 1 year screening mammogram is recommended. This exam was interpreted at Station ID: [id number]. NOTE: For mammograms, a report in lay terms will be sent to the patient. Approximately 15% of breast malignancies will not be visualized mammographically. In the management of a palpable breast mass, a negative mammogram must not discourage biopsy of a clinically suspicious lesion. Electronically Signed By: Renetta Lara M.D., Ph.D. pj/clive:09/27/2023 12:04:36 letter sent: Normal Exam ACR BI-RADS Category 1: Negative [id number]
== END ==
LOC: MAMMO 12:41
PROVIDERS: PCP Family Medicine; Referring Provider Family Medicine; Visit Provider Family Medicine
DX: Z12.31 Encounter for screening mammogram for malignant neoplasm of breast (principal); Z85.3 Personal history of malignant neoplasm of breast; R92.323 Mammographic fibroglandular density, bilateral breasts
CPT/HCPCS: 77063; 77067

== ENCOUNTER → 2024-04-14 09:49 | Outpatient (CLI) | payer MEDICARE, SELFPAY ==
--- NOTE | 2024-04-14 10:13 | DI.RAD.S_ITS ---
PROCEDURE: XR ABDOMEN MIN 2V INDICATIONS: Lower abdominal pain, unspecified TECHNIQUE: 2 views of the abdomen were acquired. COMPARISON: None. FINDINGS: Stool gas pattern: Scattered air-fluid levels within decompressed nondilated stomach, small bowel and large bowel are most compatible with ileus. No free intraperitoneal or extraperitoneal air. No gross evidence of ascites Soft tissues: There cluster of 5-6 calcification the left L3 paraspinous region which are likely vascular.. Few small rounded pelvic calcifications are most likely phleboliths. Organs: No gross evidence for organomegaly. IMPRESSION: Mild ileus. Moderate L2-3 degenerative disc disease. Moderate right and mild left hip degeneration Dictated by: Joseph Thakkar M.D. on 04/15/2024 at 9:17 Approved by: Joseph Thakkar M.D. on 04/15/2024 at 9:20
== END ==
PROVIDERS: PCP Family Medicine; Referring Provider Family Medicine; Visit Provider Family Medicine
DX: K56.7 Ileus, unspecified (principal); M51.369 Other intervertebral disc degeneration, lumbar region without mention of lumbar back pain or lower extremity pain; R10.30 Lower abdominal pain, unspecified
CPT/HCPCS: 74019